=== PATIENT | female | born 1950 | race Caucasian/White ===

== ENCOUNTER 2022-01-18 11:23 | Emergency (ER) | payer MEDICARE, OTHER ==
[~2022-01-18] VITALS: Ht 170.2 cm; Wt 88.5 kg
[2022-01-18 12:06] LABS: BILIRUBIN,URINE NEGATIVE (NEGATIVE); CLARITY,URINE CLEAR; COLOR,URINE YELLOW; GLUCOSE, URINE (UA) NEGATIVE (NEGATIVE); KETONES,URINE NEGATIVE (NEGATIVE); LEUKOCYTE ESTERASE ,URINE NEGATIVE (NEGATIVE); NITRITE,URINE NEGATIVE (NEGATIVE); PROTEIN,URINE NEGATIVE (NEGATIVE)
[2022-01-18 12:08] LABS: BACTERIA,URINE TRACE /HPF; WBC,URINE RARE /HPF; YEAST,URINE FEW /HPF
[2022-01-18 12:12] LABS: BASOPHILS % (AUTO) 1 % (0-10); EOSINOPHILS # (AUTO) 0.2 10^3/uL (0.0-0.3); EOSINOPHILS % (AUTO) 3 % (0-10); HEMATOCRIT 41 % (35-52); HEMOGLOBIN 14.1 g/dL (11.5-16.0); LYMPHOCYTES # (AUTO) 1.5 10^3/uL (1.0-4.0); LYMPHOCYTES % (AUTO) 23 % (12-44); MEAN CORPUSCULAR HEMOGLOBIN 30 pg (25-34); MEAN CORPUSCULAR HGB CONC 34 g/dL (32-36); MEAN CORPUSCULAR VOLUME 87 fL (80-99); MEAN PLATELET VOLUME 9.1 fL (9.0-12.2); MONOCYTES # (AUTO) 0.5 10^3/uL (0.0-1.0); MONOCYTES % (AUTO) 8 % (0-12); NEUTROPHILS # (AUTO) 4.4 10^3/uL (1.8-7.8); NEUTROPHILS % (AUTO) 66 % (42-75); PLATELET COUNT 275 10^3/uL (130-400); WHITE BLOOD COUNT 6.7 10^3/uL (4.3-11.0)
--- NOTE | 2022-01-18 12:20 | ED General ---
General Chief Complaint: Altered Mental Status Stated Complaint: AMS Nursing Triage Note: PT AMBULATE TO ROOM FS06 WITHOUT DIFFICULTY WITH C/O AMS STARTING TODAY AT 1000. STATES THAT TODAY IS HIS BIRTHDAY AND HE AND PT HAD THE SEX. STATES THAT AFTER THE SEX THE PT WENT AND STOOD BY THE WINDOW AND ACTING CONFUSED. STATES THAT THEY LIVE ON A FARM AND HE TOOK PT AROUND THE FARM ATTEMPTING TO REORIENTATE PT TO HER SURROUNDINGS. STATES THAT HE AND PT WENT TO PT'S SISTERS HOUSE TO VISIT AND THAT THE SISTER GAVE THE PT PO B12 AND ASA. PT ALSO REPORTS A STIFF NECK. Source of Information: Patient, Family History of Present Illness Date Seen by Provider: Jan 18, 2022 Time Seen by Provider: 11:50 Initial Comments Patient is a 71-year-old female who presents with transient change in mental status starting approximately 2 hours ago. Patient became disoriented shortly after having his sexual intercourse with her . Patient began to act confused immediately afterwards and has loss of memory recall and events lasting for approximately 5 minutes. Patient states she is still feeling with minor disorientation has not 100% normal. She reports neck stiffness. Patient states earlier in the day she did have migraine-like headache and vision loss typical with her previous migraine headache pattern. She took aspirin and vitamin B pills. She has not had facial weakness, and droop, impaired speech, impaired swelling, loss of balance, or focal extremity weakness loss of sensation. Patient is not diabetic. No other symptoms or complaints Timing/Duration: 1 Hour Severity: Mild Modifying Factors: improves with Other Associated Systoms: Other Allergies and Home Medications Allergies Coded Allergies: codeine (Verified Allergy, Unknown, 01/18/22) Patient Home Medication List Home Medication List Reviewed: No Review of Systems Review of Systems Constitutional: see HPI EENTM: see HPI Gastrointestinal: see HPI Genitourinary: see HPI Musculoskeletal: see HPI Skin: see HPI Psychiatric/Neurological: See HPI Immunological/Allergic: see HPI All Other Systems Reviewed Negative Unless Noted: No Past Dhkgdfu-Hhmrms-Aswrzh Hx Patient Social History Tobacco Use?: No Smoking Status: Never a Smoker Smokeless Tobacco Frequency: Never a User Use of E-Cig and/or Vaping dev: No Use of E-Cig and/or Vaping Luan: Never a User Substance use?: No Alcohol Use?: Yes Alcohol Frequency: Couple times a week Pt feels they are or have been: No Immunizations Up To Date COVID19 Vaccine Technical Service Rep: MODERNA Physical Exam Vital Signs Vital Signs - First Documented 01/18/22 11:28 Temp 36.7 Pulse 71 Resp 18 B/P (MAP) 151/75 (100) O2 Delivery Room Air Capillary Refill : Less Than 3 Seconds Height, Weight, BMI Height: '" Weight: lbs. oz. kg; 30.00 BMI Method: General Appearance: No Apparent Distress, WD/WN, Anxious Eyes: Bilateral Eye Normal Inspection, Bilateral Eye PERRL, Bilateral Eye EOMI HEENT: PERRL/EOMI, Normal ENT Inspection Neck: Full Range of Motion, Normal Inspection Respiratory: Lungs Clear Cardiovascular: Regular Rate, Rhythm Gastrointestinal: Non Tender, Soft Back: Normal Inspection, No CVA Tenderness Neurologic/Psychiatric: Alert, Oriented x3, No Motor/Sensory Deficits, Normal Mood/Affect, dye tank tender II-XII Norm as Tested Focused Exam Sepsis Stage: Ruled Out Progress/Results/Core Measures Suspected Sepsis SIRS Temperature: Pulse: 71 Respiratory Rate: 18 Laboratory Tests 01/18/22 12:00: White Blood Count 6.7 Blood Pressure 151 /75 Mean: 100 Laboratory Tests 01/18/22 12:00: Creatinine 0.84, Platelet Count 275, Total Bilirubin 0.5 Results/Orders Lab Results Laboratory Tests Test 01/18/22 11:29 01/18/22 12:00 01/18/22 12:09 Range/Units Urine Color YELLOW Urine Clarity CLEAR Urine pH 7.0 5-9 Urine Specific [place] <=1.005 1.016-1.022 Urine Protein NEGATIVE NEGATIVE Urine Glucose (UA) NEGATIVE NEGATIVE Urine Ketones NEGATIVE NEGATIVE Urine Nitrite NEGATIVE NEGATIVE Urine Bilirubin NEGATIVE NEGATIVE Urine Urobilinogen 0.2 < = 1.0 MG/DL Urine Leukocyte Esterase NEGATIVE NEGATIVE Urine RBC (Auto) NEGATIVE NEGATIVE Urine RBC 5-10 H /HPF Urine WBC RARE /HPF Urine Squamous Epithelial Cells 2-5 /HPF Urine Crystals NONE /LPF Urine Bacteria TRACE /HPF Urine Casts NONE /LPF Urine Mucus NEGATIVE /LPF Urine Yeast FEW H /HPF Urine Culture Indicated NO White Blood Count 6.7 4.3-11.0 10^3/uL Red Blood Count 4.74 3.80-5.11 10^6/uL Hemoglobin 14.1 11.5-16.0 g/dL Hematocrit 41 35-52 % Mean Corpuscular Volume 87 80-99 fL Mean Corpuscular Hemoglobin 30 25-34 pg Mean Corpuscular Hemoglobin Concent 34 32-36 g/dL Red Cell Distribution Width 14.1 10.0-14.5 % Platelet Count 275 130-400 10^3/uL Mean Platelet Volume 9.1 9.0-12.2 fL Immature Granulocyte % (Auto) 0 % Neutrophils (%) (Auto) 66 42-75 % Lymphocytes (%) (Auto) 23 12-44 % Monocytes (%) (Auto) 8 0-12 % Eosinophils (%) (Auto) 3 0-10 % Basophils (%) (Auto) 1 0-10 % Neutrophils # (Auto) 4.4 1.8-7.8 10^3/uL Lymphocytes # (Auto) 1.5 1.0-4.0 10^3/uL Monocytes # (Auto) 0.5 0.0-1.0 10^3/uL Eosinophils # (Auto) 0.2 0.0-0.3 10^3/uL Basophils # (Auto) 0.0 0.0-0.1 10^3/uL Immature Granulocyte # (Auto) 0.0 0.0-0.1 10^3/uL Sodium Level 140 135-145 MMOL/L Potassium Level 4.3 3.6-5.0 MMOL/L Chloride Level 104 98-107 MMOL/L Carbon Dioxide Level 26 21-32 MMOL/L Anion Gap 10 5-14 MMOL/L Blood Urea Nitrogen 15 7-18 MG/DL Creatinine 0.84 0.60-1.30 MG/DL Estimat Glomerular Filtration Rate 75 BUN/Creatinine Ratio 18 Glucose Level 93 70-105 MG/DL Calcium Level 9.8 8.5-10.1 MG/DL Corrected Calcium 8.5-10.1 MG/DL Total Bilirubin 0.5 0.1-1.0 MG/DL Aspartate Amino Transf (AST/SGOT) 21 5-34 U/L Alanine Aminotransferase (ALT/SGPT) 18 0-55 U/L Alkaline Phosphatase 101 40-136 U/L Troponin I < 0.30 <0.30 NG/ML Total Protein 7.8 6.4-8.2 GM/DL Albumin 4.9 H 3.2-4.5 GM/DL Glucometer 90 70-110 MG/DL My BRANDON Spivey DO Cbc With Automated Diff (8/14/22 12:01) Comprehensive Metabolic Panel (01/18/22 12:01) Ekg Tracing (01/18/22 12:01) Troponin I Fs (01/18/22 12:01) Ua Culture If Indicated (01/18/22 12:01) Chest 1 View Ap/Pa Only (01/18/22 12:01) Ct Angio Head/Neck (01/18/22 12:01) Accucheck Fasting (01/18/22 12:01) Ed Iv/Invasive Line Start (01/18/22 12:11) Thyroid Stimulating Hormone (01/18/22 12:00) Iohexol Injection (Omnipaque 350 Mg/Ml 1 (01/18/22 12:30) Received Contrast (Hold Metformin- Contr (01/18/22 12:30) Sodium Chloride Flush (Catheter Flush Sy (01/18/22 12:30) Ns (Ivpb) (Sodium Chloride 0.9% Ivpb Bag (01/18/22 12:30) Fentanyl Inj (Sublimaze Injection) (01/18/22 12:30) Ondansetron Injection (Zofran Injectio (01/18/22 12:30) Ketorolac Injection (Toradol Injection) (01/18/22 12:30) Ns Iv 1000 Ml (Sodium Chloride 0.9%) (01/18/22 12:30) Medications Given in ED Current Medications Medications Dose Ordered Sig/Hannah Route Start Time Stop Time Status Last Admin Dose Admin Iohexol 75 ml ONCE ONCE IV 01/18/22 12:30 01/18/22 12:31 DC 01/18/22 13:12 75 ML Sodium Chloride 10 ml NEEDED PRN IV 01/18/22 12:30 01/18/22 13:12 10 ML Vital Signs/I&O 01/18/22 11:28 Temp 36.7 Pulse 71 Resp 18 B/P (MAP) 151/75 (100) O2 Delivery Room Air Capillary Refill : Less Than 3 Seconds Blood Pressure Mean: 100 Point of Care Testing Finger Stick Blood Glucose: 90 Blood Glucose Action Taken: PROVIDER NOTIFIED Departure Communication (Admissions) CT angio head neck: No acute findings per radiology report EKG: Normal sinus rhythm, rate 60, normal RI, QRS, QTc intervals. No acute ST-T wave changes. Patient with altered mental status headache and neck pain uncertain etiology. Return to baseline mental status headache resolved in the ED. CT angio head neck negative. Neurologically intact. Lab work reviewed and reassuring. Patient is comfortable with discharge home. Recommendations are for watchful waiting PCP follow-up for further management recommendations. Return precautions reviewed. Patient verbalizes understanding agreement discharge instructions prior to departure. Impression Primary Impression: Mental status change resolved Additional Impression: Headache Disposition: HOME, SELF-CARE Condition: Stable Departure-Patient Inst. Decision time for Depature: 14:03 Referrals: PAULINO ORTIZ APRN (PCP) Primary Care Physician SARAH DOMINIQUE MD (Family) Primary Care Physician Patient Instructions: ALTERED LEVEL OF CONSCIOUSNESS, Headache, Adult Add. Discharge Instructions: Shania was evaluated in the emergency department for headache, neck pain and confusion. CT scan, chest x-ray, EKG and lab were performed and are not diagnostic. The exact cause of her symptoms has not been determined. Please go rest, continue home medications follow-up with your PCP in the next 1 to 2 days for reevaluation. Return to the ED if new or worsening symptoms All discharge instructions reviewed with patient and/or family. Voiced understanding. BRANDON ZIMMERMAN DO Jan 18, 2022 12:20
[2022-01-18] MEDS ORDERED: KETOROLAC 30 MG/ML VIAL IVP ONE (12:30)
[2022-01-18] MEDS ORDERED: CATHETER FLUSH 10 ML SYR IV PRN (12:30)
[2022-01-18] MEDS ORDERED: fentaNYL INJ 100 MCG/2 ML AMP IVP ONE (12:30)
[2022-01-18] MEDS ORDERED: ONDANSETRON 4 MG/2 ML (SDV) Z0FRAN IVP ONE (12:30)
[2022-01-18] MEDS ORDERED: NS IV 1000 ML 1,000 ML IV SCH (12:30)
[2022-01-18] MEDS ORDERED: NS 100 ML (IVPB) BAG IV ONE (12:30)
[2022-01-18] MEDS ORDERED: HOLD METFORMIN - RECEIVED CONTRAST 20 ML VIAL IV SCH (12:30)
[2022-01-18] MEDS ORDERED: IOHEXOL 350 MG/ML 100 ML (OMNIPAQUE 350) VIAL IV ONE (12:30)
--- NOTE | 2022-01-18 12:34 | Diagnostic Imaging Report ---
EXAMINATION: Chest, one view. HISTORY: Dizziness. COMPARISON: None available. FINDINGS: The lungs are clear without edema or pneumonia. No pleural effusion or pneumothorax. Heart size is normal. IMPRESSION: 1. Clear lungs. Dictated by: Dictated on workstation # [id number]
[2022-01-18 12:37] LABS: ALANINE AMINOTRANSFERASE 18 U/L (0-55); ALBUMIN 4.9 GM/DL (3.2-4.5); ALKALINE PHOSPHATASE 101 U/L (40-136); BILIRUBIN,TOTAL 0.5 MG/DL (0.1-1.0); BUN/CREATININE RATIO 18; CALCIUM 9.8 MG/DL (8.5-10.1); CARBON DIOXIDE 26 MMOL/L (21-32); CHLORIDE 104 MMOL/L (98-107); CREATININE SERUM 0.84 MG/DL (0.60-1.30); GFR ESTIMATED 75; GLUCOSE 93 MG/DL (70-105); POTASSIUM 4.3 MMOL/L (3.6-5.0); SODIUM 140 MMOL/L (135-145); TOTAL PROTEIN 7.8 GM/DL (6.4-8.2)
--- NOTE | 2022-01-18 13:42 | Diagnostic Imaging Report ---
EXAMINATION: CT angiography head and neck with and without contrast. TECHNIQUE: After intravenous administration of contrast, thin section axial CT angiography of the head and neck was performed. Source data was reformatted into 3D MIP projections. All CT scans use one or more of the following dose optimizing techniques: Automated exposure control, MA and/or KvP adjustment based on a patient size and exam type, or iterative reconstruction. Any measurements of internal carotid artery stenosis are provided according to NASCET criteria. CT angiogram was post-processed using AI detection software to include quantitative measurements of cerebral blood flow and automated results notification to the stroke and/or neurointerventional team. HISTORY: Dizziness. COMPARISON: None available. FINDINGS: The carotid arteries are normal without stenosis. Vertebral arteries are normal without stenosis. Intracranial internal carotid arteries are normal. The middle cerebral arteries are normal. The posterior cerebral arteries are normal. The anterior cerebral arteries are normal. There is no large vessel occlusion. No aneurysm or vascular malformation is seen. The chandler-white matter differentiation is normal. No mass effect or midline shift. The ventricles are normal in size and configuration. Basilar cisterns are patent. There are no intra- or extra-axial fluid collections. There is no intracranial hemorrhage. The orbits are normal. Paranasal sinuses are normal. Mastoid air cells are clear. No soft tissue abnormality is seen. No osseous lesions or fractures are seen. No lymphadenopathy is seen in the neck. The muscles of the neck are normal. Fascial planes are preserved and the deep spaces of the neck are normal. Limited views of the superior thorax are unremarkable. No osseous lesions or fractures are seen. IMPRESSION: 1. Normal vasculature in the head and neck without large vessel occlusion. Dictated by: Dictated on workstation # [id number]
[2022-01-18 14:09] VITALS: BP 145/87
== END 2022-01-18 14:09 | disposition home or self-care (01) ==
LOC: ER FS 11:25
DX: R51.9 Headache, unspecified (principal); R41.82 Altered mental status, unspecified
CPT/HCPCS: 36415; 70496; 70498; 71045; 80053; 81000; 82947; 84443; 84484; 85025; 93005; Q9967

== ENCOUNTER 2022-07-17 16:38 | Emergency (ER) | payer MEDICARE, OTHER ==
[~2022-07-17] VITALS: Ht 170.2 cm; Wt 90.7 kg
[2022-07-17 16:45] VITALS: BP 152/92
--- NOTE | 2022-07-17 16:49 | ED Lower Extremity ---
General Chief Complaint: Lower Extremity Stated Complaint: RT KNEE PAIN Source: patient Exam Limitations: no limitations History of Present Illness Date Seen by Provider: Jul 17, 2022 Time Seen by Provider: 16:40 Initial Comments 71-year-old female presents to the emergency department today for right knee pain. Symptoms started on Wednesday and were relatively mild but persistent. She was walking in the yard to feed her goats this evening and felt a pop in her anterior right knee and has had pain since that time. She is not having difficulty bearing weight. She has minimal pain if she is sitting, increased with weightbearing or planting, twisting motions. She states the leg feels unstable as well. Allergies and Home Medications Allergies Coded Allergies: codeine (Verified Allergy, Unknown, 01/18/22) Patient Home Medication List Home Medication List Reviewed: Yes Review of Systems Constitutional: no symptoms reported EENTM: no symptoms reported Respiratory: no symptoms reported Cardiovascular: no symptoms reported Gastrointestinal: no symptoms reported Genitourinary: no symptoms reported Musculoskeletal: joint pain Skin: no symptoms reported Psychiatric/Neurological: No Symptoms Reported Past Aasjvvi-Rqrvcd-Xezeoh Hx Patient Social History Tobacco Use?: No Use of E-Cig and/or Vaping dev: No Substance use?: No Alcohol Use?: No Family Medical History Reviewed Nursing Family Hx No Pertinent Family Hx Physical Exam Vital Signs Vital Signs - First Documented 07/17/22 16:45 Temp 36.1 Pulse 75 Resp 16 B/P (MAP) 152/92 (112) Pulse Ox 100 O2 Delivery Room Air Capillary Refill : Height, Weight, BMI Height: '" Weight: lbs. oz. kg; 30.00 BMI Method: General Appearance: WD/WN, no apparent distress HEENT: normal ENT inspection, pharynx normal Neck: non-tender, supple, normal inspection Cardiovascular: regular rate, rhythm, no JVD Respiratory: chest non-tender, lungs clear, normal breath sounds, no respiratory distress, no accessory muscle use Gastrointestinal: normal bowel sounds, non tender, soft, no organomegaly, no pulsatile mass Back: normal inspection, no vertebral tenderness Hips: bilateral hip non-tender, bilateral hip normal inspection, bilateral hip normal range of motion Legs: bilateral leg non-tender, bilateral leg normal inspection, bilateral leg normal range of motion Knees: right knee swelling (Knee joint effusion the right anterior knee. There is laxity with anterior drawer sign. Pain with varus and valgus stress testing, anterior and posterior drawer. Positive Suraj.) Ankles: bilateral ankle non-tender, bilateral ankle normal inspection, bilateral ankle normal range of motion Feet: bilateral foot non-tender, bilateral foot normal inspection, bilateral foot normal range of motion Neurologic/Tendon: normal sensation, normal motor functions, normal tendon functions Neurologic/Psychiatric: alert, normal mood/affect, oriented x 3 Skin: normal color, warm/dry Progress/Results/Core Measures Results/Orders My Orders Orders - RICHELVIRA L DO Knee 3 View Right (07/17/22 16:48) Hydrocodone/Apap 5/325 Tablet (Lortab 5 (07/17/22 17:00) Knee Immobilizer (07/17/22 16:55) Crutches (07/17/22 16:55) Vital Signs/I&O 07/17/22 16:45 Temp 36.1 Pulse 75 Resp 16 B/P (MAP) 152/92 (112) Pulse Ox 100 O2 Delivery Room Air Departure Communication (Admissions) Patient is hemodynamically stable. She has laxity with anterior drawer, suspect ligamentous injury. Neurovascular motor and sensory intact. X-rays negative for any bony abnormality. Placed in a knee immobilizer, given crutches and orthopedic follow-up. Impression Primary Impression: Right knee pain Qualified Codes: M25.561 - Pain in right knee Disposition: 01 HOME, SELF-CARE Condition: Stable Departure-Patient Inst. Referrals: LATHA NAVA MD Patient Instructions: Knee Pain ED Add. Discharge Instructions: Use the knee immobilizer for stability. You may touchdown with your toe but be careful going up stairs or planting with twisting motions as this may cause it to be unstable. Use the crutches as needed. Use ibuprofen for any mild pain. Use hydrocodone for any breakthrough pain. This may make you drowsy so do not drive or make important decisions while taking it. You may also use stool softeners while taking it as it may cause constipation. Please call the orthopedic surgeon, Dr. Nava, to schedule a follow-up appointment. All discharge instructions reviewed with patient and/or family. Voiced understanding. Scripts Hydrocodone/Acetaminophen (Hydrocodone-Acetamin 5-325 mg) 5 Mg-325 Mg Tablet 1 TAB PO Q4H PRN for PAIN-MODERATE (5-7) for 3 Days, #12 TAB Prov: ELVIRA VILLANUEVA DO 07/17/22 ELVIRA VILLANUEVA DO Jul 17, 2022 16:49
[2022-07-17] MEDS ORDERED: HYDROcodone/APAP 5 MG/325 MG (LORTAB) TAB PO ONE (17:00)
[2022-07-17] MEDS ORDERED: ACHD5005 PO (17:05)
--- NOTE | 2022-07-17 17:05 | Diagnostic Imaging Report ---
KNEE 3 VIEW RIGHT INDICATION: Anterior knee pain. COMPARISON: None available. TECHNIQUE: Three views of the right knee. FINDINGS: No acute fracture. Degenerative joint space narrowing in the medial compartment is noted with small marginal osteophytes. No knee joint effusion or mineralized intra-articular bodies. No concerning focal osseous lesion. IMPRESSION: 1. No acute osseous abnormality. 2. Degenerative arthritis is most advanced in the medial compartment. Dictated by: Dictated on workstation # [id number]
== END 2022-07-17 17:31 | disposition home or self-care (01) ==
LOC: EDUNIT# 16:38 → ER FS 16:39
DX: M25.561 Pain in right knee (principal); Z88.5 Allergy status to narcotic agent; X50.1XXA Overexertion from prolonged static or awkward postures, initial encounter; Y92.096 Garden or yard of other non-institutional residence as the place of occurrence of the external cause; Y93.01 Activity, walking, marching and hiking
CPT/HCPCS: 73562